=== PATIENT | female | born 1975 | race Caucasian/White ===

== ENCOUNTER → 2017-09-07 | Outpatient (CLI) | payer OTHER ==
[~2017-09-07] MED LIST: BENZ100A PO; HYDACE5 PO; IBUP400; NAPR500 PO; Norco 5-325 Ta1 EACH PO; ONDA8 PO; PENVK500 PO; RXHYDACE PO; RXPENVK250 PO; Zithromax250 MG PO; Zofran Odt4 MG SL
[2017-09-10 12:59] LABS: HPV Genotype 16 Not Detected (NOTDET); HPV Genotype 18 Not Detected (NOTDET)
[2017-09-17 12:55] LABS: HPV High Risk Other Not Detected (NOTDET)
== END | disposition home or self-care (01) ==
LOC: LAB 11:10
PROVIDERS: Nurse Practitioner Family
DX: Z01.419 Encounter for gynecological examination (general) (routine) without abnormal findings (principal)
CPT/HCPCS: 87624; G0145